=== PATIENT | female | born 1990 | race Caucasian/White ===

== ENCOUNTER 2022-05-18 21:56 | Emergency (ER) | payer OTHER, SELFPAY ==
[2022-05-18] VITALS (11 sets, daily range): BP systolic 146–205; BP diastolic 74–98; PULSE 109–131; RESP 24–38; TEMP 36.2; O2SAT 97–99; BMI 40.7
--- NOTE | 2022-05-18 22:09 | ED.ALLEREA ---
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 Patient states at about 915 this evening she had salmon she started having symptoms shortly thereafter gave herself an EpiPen at about 920 which she states was helpful but then symptoms started to reoccur. She took some Zofran at home but did not take any Benadryl or steroids. She states this has happened before with shrimp, she states she has required intubation in the past. She does not feel that she is at that level but she does feel very tight in her airway, she feels little bit tight and wheezy in her chest. She is had some nausea and vomiting. She denies any diarrhea. She denies any current rash. Patient denies any other prior surgeries. Denies any other daily medications. She states she is allergic to latex but denies any other allergies. Denies tobacco, no current alcohol, or illicit. Related Data Previous Rx's Medication Instructions Recorded prednisone 10 mg tablets in a dose See Rx Instructions PO .COMPLEX 05/19/22 pack #21 ea Allergies Allergy/AdvReac Type Severity Reaction Status Date / Time latex Allergy Severe Anaphylaxis Verified 05/18/22 22:41 salmon oil Allergy Severe Anaphylaxis Verified 05/18/22 22:41 shrimp Allergy Unknown Verified 05/18/22 22:16 hydrocodone AdvReac Intermediate Hives Verified 05/18/22 22:41 oxycodone AdvReac Intermediate Hives Verified 05/18/22 22:41 Review of Systems Review of Systems ROS Unobtainable: All systems reviewed & are unremarkable except as noted in HPI and below Patient History Social History Smoking Status: Never smoker Exam Narrative Exam Narrative: GEN: Obese female, alert and oriented x 3, patient appears to be in moderate distress. HEENT: Atraumatic, pupils are equal round reactive to light, extraocular movements are intact, nares are clear. Throat is clear without any exudates, erythema, tonsillar enlargement or uvular deviation, HEART: Tachycardic but Regular rate and rhythm without murmur, clicks, rubs. LUNGS:Lungs breath sounds equally bilaterally, no wheezes, rales, crackles, chest moves symmetrically, no tachypnea ABD:bowel sounds normal, soft, non-tender, no guarding, rebound, rigidity, no masses noted, no hepatosplenomegaly :No CVA tenderness MSCL: Non-tender, no muscle atrophy, muscles strength 5/5 upper and lower extremities, full range of motion, normal gait NEURO:CN 2-12 intact, sensation normal SKIN: Slightly erythematous, no wheals Initial Vital Signs Initial Vital Signs: Vital Signs Temperature 97.2 F L 05/18/22 22:07 Pulse Rate 131 H 05/18/22 22:07 Respiratory Rate 24 05/18/22 22:07 Blood Pressure 205/98 H 05/18/22 22:07 Pulse Oximetry 99 05/18/22 22:07 Oxygen Delivery Method 05/18/22 22:07 Course Orders Ordered: Discontinued Medications Diphenhydramine HCl (Diphenhydramine 50 Mg/Ml Vial) 50 mg IV NOW ONE Stop: 05/18/22 22:06 Last Admin: 05/18/22 22:17 Dose: 50 mg Documented By: MENDY Epinephrine HCl (Epinephrine 1 Mg/Ml) 0.5 mg IM NOW ONE Stop: 05/18/22 22:06 Last Admin: 05/18/22 22:13 Dose: 0.5 mg Documented By: MENDY Famotidine (Famotidine 20 Mg/2 Ml Vial) 20 mg IV NOW LASHAY Last Admin: 05/18/22 22:17 Dose: 20 mg Documented By: MENDY Famotidine (Famotidine 20 Mg/2 Ml Vial) 20 mg IV NOW ONE Stop: 05/18/22 22:31 Last Admin: 05/18/22 22:36 Dose: Not Given Documented By: NAZARIO Sodium Chloride (Normal Saline 0.9%) 1,000 mls @ 1,000 mls/hr IV BOLUS ONE Stop: 05/18/22 23:06 Last Infusion: 05/19/22 00:05 Dose: 0 mls/hr Documented By: Admin: 05/18/22 22:19 Dose: 1,000 mls/hr Documented By: MENDY Methylprednisolone (Methylprednisolone 125 Mg/2 Ml Vial) 125 mg IV NOW ONE Stop: 05/18/22 22:06 Last Admin: 05/18/22 22:19 Dose: 125 mg Documented By: MENDY Ondansetron HCl (Ondansetron 4 Mg/2 Ml Inj) 4 mg IV NOW ONE Stop: 05/18/22 22:21 Last Admin: 05/18/22 22:30 Dose: 4 mg Documented By: AT Reevaluation(s) Reevaluation #1: Patient had epi IM which she feels like is improving her symptoms. Received Solu-Medrol, Pepcid and Benadryl as well. Will continue to monitor. Time: 22:21 Time: 02:00 Vital Signs Vital signs: Vital Signs - 8 hr 05/18/22 22:07 05/18/22 22:27 05/18/22 22:30 Temperature 97.2 F L Pulse Rate 131 H 119 H Respiratory Rate 24 32 H Blood Pressure 205/98 H 171/80 H 176/81 H Pulse Oximetry 99 98 Oxygen Delivery Method Room Air Room Air 05/18/22 22:30 05/18/22 22:41 05/18/22 22:41 Temperature Pulse Rate 116 H 112 H Respiratory Rate 35 H 38 H 32 H Blood Pressure 155/75 H Pulse Oximetry 98 98 Oxygen Delivery Method 05/18/22 22:50 05/18/22 22:50 05/18/22 23:00 Temperature Pulse Rate 110 H Respiratory Rate 32 H Blood Pressure 151/90 H 153/91 H Pulse Oximetry 98 Oxygen Delivery Method 05/18/22 23:00 05/18/22 23:10 05/18/22 23:10 Temperature Pulse Rate 109 H 109 H Respiratory Rate 36 H 34 H Blood Pressure 146/79 H Pulse Oximetry 98 98 Oxygen Delivery Method 05/18/22 23:20 05/18/22 23:20 05/18/22 23:30 Temperature Pulse Rate 115 H Respiratory Rate 36 H Blood Pressure 159/78 H 146/74 H Pulse Oximetry 97 Oxygen Delivery Method 05/18/22 23:30 05/18/22 23:40 05/18/22 23:40 Temperature Pulse Rate 113 H 113 H Respiratory Rate 29 H Blood Pressure 156/78 H Pulse Oximetry 98 98 Oxygen Delivery Method 05/18/22 23:50 05/18/22 23:50 05/19/22 00:00 Temperature Pulse Rate 109 H Respiratory Rate Blood Pressure 153/78 H 153/73 H Pulse Oximetry 98 Oxygen Delivery Method 05/19/22 00:00 05/19/22 00:10 05/19/22 00:10 Temperature Pulse Rate 107 H 106 H Respiratory Rate 35 H 36 H Blood Pressure 143/68 H Pulse Oximetry 98 98 Oxygen Delivery Method 05/19/22 00:30 05/19/22 00:30 05/19/22 01:00 Temperature Pulse Rate 108 H Respiratory Rate 35 H Blood Pressure 140/72 133/63 Pulse Oximetry 97 Oxygen Delivery Method 05/19/22 01:00 05/19/22 01:30 05/19/22 01:30 Temperature Pulse Rate 103 H 103 H Respiratory Rate 35 H 31 H Blood Pressure 136/64 Pulse Oximetry 96 98 Oxygen Delivery Method 05/19/22 02:00 05/19/22 02:00 05/19/22 02:20 Temperature Pulse Rate 102 H 78 Respiratory Rate 38 H 18 Blood Pressure 138/60 144/82 H Pulse Oximetry 98 97 Oxygen Delivery Method Room Air MDM - Allergic Reaction MDM Narrative Medical decision making narrative: This is a 31-year-old female with complaint of tightness of her throat and anaphylactic type symptoms she actually used her EpiPen at home about 40 minutes prior to arrival was helpful then symptoms recurred but she did not take any other medications such as Benadryl or steroids at home. She did take some Zofran. Patient has a known allergy to shrimp she had salmon today suspect there was some cross contamination as there symptoms began shortly thereafter. Patient received axis, additional dose of epi which she feels is very helpful as well as Solu-Medrol, Pepcid and Benadryl. We will continue to monitor. Patient notes that she is been intubated enough times that she has some vocal cord dysfunction. Patient states it usually improves as her symptoms improve. She states she has received epi and not been intubated, she is visiting the area from [place] and forgot her other medication she takes when she has episodes. Patient accidentally pulled out her IV, it was replaced. She is continued to be improved upon recheck at 2335. Recheck @ 0025, patient continues to feel improved. Discussed I would like to watch her for 4 hours she received 2 doses of epi today. She states she normally does a steroid taper, she does not typically do an H2 [place]. She has done a variety length of steroid tapers in the past. Patient notes that she has 3 EpiPen available at home. Patient does follow up with an instrument lens inspector at home. Recheck at 0200, patient continues to feel much better. She is been wishing to leave for about the past 2 hours but we had discussed with her history I would like to watch at or and she has continued to be asymptomatic with no recurrence. Discussed printed prescription for steroids she will start during daytime hours today, Benadryl as needed. She does not usually take H2 blockers. Critical Care Time Critical Care Time Critical Care Time: Yes Total Critical Care Time: 35 Attestation: The high probability of a clinically significant, sudden or life threatening deterioration of the [cardiac, pulm] system(s) required my full and direct attention, intervention and personal management. The aggregate critical care time was [] minutes. This time is in addition to time spent performing reported procedures but includes the following: [x] Data Review and interpretation [x] Patient assessment and monitoring of vital signs [x] Documentation [x] Medication orders and management Discharge Plan Departure Patient Disposition: Home Clinical Impression: Anaphylaxis Instructions: DI for Anaphylaxis Activity Restrictions/Additional Instructions: Follow-up with your instrument lens inspector. The salmon today may have been the source or it may have had cross contamination from shrimp. Continue steroids until gone, start steroids today during day time hours (May 19). You can use Benadryl 1-2 tablets every 6 hours as needed. Prescription was printed. Please return if you have recurrent symptoms, new swelling of her airway, swelling of her lips mouth or oropharynx, persistent chest tightness or difficulty breathing, rash, persistent vomiting or other new or concerning changes. Prescriptions: New prednisone 10 mg tablets,dose pack See Rx Instructions .ROUTE .COMPLEX Qty: 21 0RF Rx Instructions: Take 6 tablets p.o. x1 day, then 5 tablets p.o. x1 day, then 4 tablets p.o. x1 day, 3 tablets p.o. x1 day, then 2 tablets p.o. x1 day, then 1 tablet p.o. x1 day
[2022-05-18] MEDS: EPINEPHrine 1 MG/ML 0.5 MG IM (22:13)
[2022-05-18] MEDS: FAMOTIDINE 20 MG/2 ML VIAL IV (22:17)
[2022-05-18] MEDS: diphenhydrAMINE 50 MG/ML VIAL IV (22:17)
[2022-05-18] MEDS: SODIUM CHLORIDE 0.9% 1,000 ML 1000 ML IV (22:19)
[2022-05-18] MEDS: methylPREDNISolone 125 MG/2 ML VIAL IV (22:19)
[2022-05-18] MEDS: ONDANSETRON 4 MG/2 ML INJ IV (22:30)
--- NOTE | 2022-05-18 22:41 | PC.NURSE ---
Addendum entered by Chase Gutiérrez R.N. 05/18/22 22:46: Correction: Respirations range between 30-36. Pt is alert, oriented, and talking in full sentences. She denies SOB. Original Note: Pt reports improvement after meds. Reports no difficulty swallowing. Pt RR are WNL. Pulse ox is 98%. Pt resides in [place] and is visiting. Reports history of anaphylaxis with history of being intubated a total of 7 times due to rebound reaction. Pt report hx of anaphylaxis to shrimp. Stated tonight she ate salmon. Pt also reports other allergies. This RN has added them to her chart.
[2022-05-19] VITALS (7 sets, daily range): BP systolic 133–153; BP diastolic 60–82; PULSE 78–108; RESP 18–38; O2SAT 96–98
== END 2022-05-19 02:10 | disposition home or self-care (01) ==
PROVIDERS: Emergency Provider Emergency Medicine
DX: T78.02XA Anaphylactic reaction due to shellfish (crustaceans), initial encounter (principal); R06.2 Wheezing; R22.0 Localized swelling, mass and lump, head
CPT/HCPCS: 36415; 96361; 96372; 96374; 96375; 99284; J0171; J1200; J2405; J2930